=== PATIENT | female | born 1930 | race Caucasian/White ===

== ENCOUNTER → 2021-03-02 | Outpatient (CLI) | payer MEDICARE, BC ==
--- NOTE | 2021-03-02 18:48 | US ---
EXAMINATION TYPE: US pelvis complete transvag DATE OF EXAM: 03/02/2021 COMPARISON: NONE CLINICAL HISTORY: 89-year-old female N95.0 Postmenopausal bleeding. Patient state there was some blood present with pelvic done at Dr's office TECHNIQUE: Transabdominal sonographic images of the pelvis were acquired. Transvaginal sonographic i mages were medically necessary to better assess the following anatomy: per order Date of LMP: Patient 89 years old/post menopausal FINDINGS: EXAM MEASUREMENTS: Uterus: 8.3 x 3.9 x 3.7 cm Endometrial Stripe: 0.2 cm Right Ovary: not visualized due to probable atrophy Left Ovary: not visualized due to probable atrophy 1. Uterus: severe calcifications throughout the myometrium. Within the cervix, there is an anechoic irregular shaped area with debris measuring 1.4 x 0.8 x 2.2cm 2. Endometrium: not well visualized due to shadowing/ calcifications 3. Right Ovary: not visualized due to probable atrophy 4. Left Ovary: not visualized due to probable atrophy 5. Bilateral Adnexa: wnl 6. Posterior cul-de-sac: wnl IMPRESSION: 1. Irregular shaped area measuring 2.2 x 1.4 x 0.8 cm along the region of the endocervical canal, jan pected area of hemorrhagic debris. Findings may be on the basis of a cervical stenosis. Recommend cor relation with findings on Pap smear. 2. The measured endometrial stripe is thin at 2 mm. If post menopausal bleeding persists, consider fe male pelvic MRI for reassessment of the junctional anatomy. 3. Neither ovary could be visualized.
== END | disposition home or self-care (01) ==
LOC: RADUSWWP 13:37
PROVIDERS: ATTEND Family Medicine
DX: R93.89 Abnormal findings on diagnostic imaging of other specified body structures (principal)
CPT/HCPCS: 76830; 76856

== ENCOUNTER → 2021-03-23 | Outpatient (CLI) | payer MEDICARE, BC ==
--- NOTE | 2021-03-24 22:22 | CT ---
EXAMINATION TYPE: CT abdomen pelvis w con DATE OF EXAM: 03/23/2021 COMPARISON: Pelvic ultrasound 03/02/2021 INDICATION: Abnormal findings on other diagnostic imaging. Pt not reporting any problems DLP: 644.30 mGycm, Automated exposure control for dose reduction was used. CONTRAST: 100 mL of Isovue 300. Study performed with Oral Contrast TECHNIQUE: Axial images were obtained from above the diaphragm to the pubic rami in the axial plane a t 5 mm thick sections. Reconstructed images are reviewed on the computer in the coronal plane. FINDINGS: Limited CT sections are obtained the lung bases. The lung bases are clear. Coronary artery calcific ation is present. CT ABDOMEN: Liver: Normal Spleen: Normal Pancreas: Normal Adrenal glands: The adrenal glands are normal. Gallbladder: Surgically absent Kidneys: No masses are evident. No hydronephrosis is present. No cysts are present. Delayed images were obtained through the kidneys, which remain unremarkable. Aorta: Vascular calcification is within the aorta. Inferior vena cava: Normal. CT PELVIS: Loops of bowel within the abdomen and pelvis are normal. Some fecal debris is within the colon. Th ere are loops of bowel which are incompletely distended or lack oral contrast limiting their evaluati on. Appendix: Not visualized. No dilated tubular structure or inflammatory changes are evident. Urinary bladder: Distended. Partially obscured by hip prosthesis being hardening artifact. Genitourinary structures: Uterus appears normal and in the right posterior hemipelvis. Adnexal region s are clear. Beam hardening artifact makes the lowest portion of the pelvis nondiagnostic. Abnormalit y discussed in the ultrasound is not visualized on the coronal CT exam. In the axial plane some hypod ensity may be present measuring 1.8 x 2.7 cm, series 3 image 77. This potentially could correlate wit h the findings on pelvic ultrasound. With the positioning however, artifact but remains within the di fferential. Osseous structures: No suspicious lytic or sclerotic lesions are evident. There is a smooth bordered lucency in the superior right acetabulum. Bilateral hip prostheses are present. IMPRESSIONS: 1. The abnormality in the lower uterus ultrasound is not reliably visualized on this CT examination due to beam hardening artifact from bilateral hip prostheses. The finding is nonspecific and appears hypodense. In the absence of contraindication for MRI, MRI would more likely provide additional infor mation.
== END | disposition home or self-care (01) ==
LOC: RADCTMAIN 16:31
PROVIDERS: ATTEND Family Medicine
DX: Z01.818 Encounter for other preprocedural examination (principal); R93.89 Abnormal findings on diagnostic imaging of other specified body structures
CPT/HCPCS: 82565; 84520; 74177; 36415; Q9967